=== PATIENT | male | born 1965 | race Caucasian/White ===

== ENCOUNTER 2018-05-18 20:34 | Inpatient (IN) | payer MEDICARE ==
[~2018-05-18] VITALS: Ht 177.8 cm; Wt 71.9 kg
[2018-05-18 21:07] LABS: BASOPHILS # (AUTO) 0.03 x10^3/uL (0-0.1); BASOPHILS % (AUTO) 1 % (0-1); EOSINOPHILS # (AUTO) 0.04 x10^3/uL (0-0.4); EOSINOPHILS % (AUTO) 1 % (1-7); LYMPHOCYTES # (AUTO) 1.36 x10^3/uL (1-3.4); LYMPHOCYTES % (AUTO) 34 % (22-44); MD NO; MEAN CORPUSCULAR HEMOGLOBIN 28.9 pg (27.5-34.5); MEAN CORPUSCULAR HGB CONC 33.3 g/dL (33.2-36.2); MEAN CORPUSCULAR VOLUME 86.7 fL (81-97); MEAN PLATELET VOLUME 8.2 fL (7.4-10.4); MONOCYTES # (AUTO) 0.47 x10^3/uL (0.2-0.8); MONOCYTES % (AUTO) 12 % (2-9); NEUTROPHILS # (AUTO) 2.17 x10^3/uL (1.8-6.8); NEUTROPHILS % (AUTO) 53 % (42-75); PLATELET COUNT 272 x10^3/uL (130-400); RED BLOOD COUNT 4.38 x10^6/uL (4.38-5.82); RED CELL DISTRIBUTION WIDTH 16.8 % (9.4-14.8)
--- NOTE | 2018-05-18 21:15 | NUR ---
FIRST CONTACT WITH PT. PT C/O UPPER QUADRANT PAIN RADIATING TO THE BACK, +N/V/D SINCE YESTERDAY. PT STATES "I HAVE CHRONIC PANCREATITIS AND I'M HAVING A FLARE UP". BP/SPO2 MONITORS IN PLACE. CALL LIGHT WITHIN REACH. PT'S AOX4. RESPS EVEN AND UNLABORED. AWAITING EDMD ASSESSMENT AT THIS TIME.
[2018-05-18 21:20] LABS: ALANINE AMINOTRANSFERASE 27 U/L (12-78); ALBUMIN 3.3 g/dL (3.4-5.0); ANION GAP 8 mmol/L (5-15); CALCIUM 8.3 mg/dL (8.5-10.1); CHLORIDE 104 mmol/L (98-107); CREATININE 1.04 mg/dL (0.7-1.3)
[2018-05-18 21:22] LABS: ALKALINE PHOSPHATASE 169 U/L (45-117); BILIRUBIN,TOTAL 0.7 mg/dL (0.2-1.0); TOTAL PROTEIN 7.6 g/dL (6.4-8.2)
[2018-05-18] MEDS ORDERED: ONDANSETRON 2MG/ML, 2ML IVPush ONE (22:00)
[2018-05-18] MEDS ORDERED: SODIUM CHLORIDE FLUSH 10ML SYR IVF ONE (22:00)
[2018-05-18] MEDS ORDERED: SODIUM CHLORIDE 0.9% 1,000ML IVBOLUS ONE ×2 (22:00→23:30)
--- NOTE | 2018-05-18 22:00 | NUR ---
PT AMB TO BR AND BACK TO ROOM WITH STEADY GAIT. UA SENT.
[2018-05-18] MEDS ORDERED: HYDROmorphone 1 MG/ML, 1ML AMP ONE ×2 (22:02→23:38)
[2018-05-18] MEDS ORDERED: ONDANSETRON 2MG/ML, 2ML ONE (22:05)
[2018-05-18 22:12] LABS: MICROSCOPIC AUTO
[2018-05-18] MEDS: HYDROmorphone 2 MG/ML, 1ML IVPush PRN ×2 (22:13→22:35)
[2018-05-18 22:14] LABS: CULTURE INDICATED? YES
--- NOTE | 2018-05-18 22:19 | NUR ---
PT MEDICATED PER EMAR. PT TOLERATED WELL. PT'S AOX4. RESPS EVEN AND UNLABORED.
--- NOTE | 2018-05-18 22:40 | NUR ---
PT C/O PAIN AFTER 1 DOSE OF DILAUDID. PT MEDICATED 2ND DOSE OF DILAUDID AT THIS TIME PER EMAR. PT'S AOX4. RESPS EVEN AND UNLABORED.
[2018-05-18] MEDS ORDERED: HYDROmorphone 1 MG/ML, 1ML AMP IV ONE (23:30)
--- NOTE | 2018-05-18 23:30 | NUR ---
PT C/O ABD/BACK PAIN RATE 09/30 STILL. EDMD NOTIFIED.
--- NOTE | 2018-05-18 23:47 | NUR ---
PT MEDICATED PER EMAR. PT TOLERATED WELL. PT'S AOX4. RESPS EVEN AND UNLABORED.
[2018-05-19] VITALS (8 sets, daily range): BP systolic 135–190; BP diastolic 89–128
--- NOTE | 2018-05-19 00:05 | NUR ---
PT C/O ABD/BACK PAIN RATE 8/10 STILL AFTER 1MG DILAUDID GIVEN. EDMD NOTIFIED.
[2018-05-19] MEDS ORDERED: HYDROmorphone 1 MG/ML, 1ML AMP IV ONE (01:30)
[2018-05-19] MEDS ORDERED: HYDROmorphone 1 MG/ML, 1ML AMP ONE (01:36)
--- NOTE | 2018-05-19 01:50 | NUR ---
PT MEDICATED PER EMAR FOR PAIN. PT TOLERATED WELL. PT'S AOX4. RESPS EVEN AND UNLABORED.
--- NOTE | 2018-05-19 01:51 | NUR ---
REPORT GIVEN TO ALEXANDRIA VERNON. ALL QUESTIONS ANSWERED.
[2018-05-19] MEDS ORDERED: ONDANSETRON 2MG/ML, 2ML IVPush PRN (03:00)
[2018-05-19] MEDS ORDERED: ENALAPRILAT 1.25 MG/ML, 2ML IVPush PRN ×2 (03:00→22:00)
[2018-05-19] MEDS: HYDROmorphone 2 MG/ML, 1ML IVPush PRN ×5 (03:49→19:45)
[2018-05-19] MEDS: CEFTRIAXONE PMX 1GM/50ML 50 ML IV SCH (04:19)
[2018-05-19] MEDS: LACTATED RINGERS 1,000 ML IV SCH ×2 (04:19→12:14)
[2018-05-19] MEDS: ENOXAPARIN 40 MG/0.4 ML SQ SCH (04:20)
[2018-05-19] MEDS ORDERED: HUM100VI6 SUBMUC ×2 (04:45→04:46)
[2018-05-19] MEDS ORDERED: HYDR1LIQ6 PO (04:47)
[2018-05-19 05:32] LABS: ALANINE AMINOTRANSFERASE 23 U/L (12-78); ANION GAP 5 mmol/L (5-15); CALCIUM 7.6 mg/dL (8.5-10.1); CHLORIDE 109 mmol/L (98-107); CREATININE 0.93 mg/dL (0.7-1.3)
[2018-05-19 05:34] LABS: ALKALINE PHOSPHATASE 142 U/L (45-117); BILIRUBIN,TOTAL 0.4 mg/dL (0.2-1.0); TOTAL PROTEIN 6.7 g/dL (6.4-8.2)
[2018-05-19 05:38] LABS: BASOPHILS # (AUTO) 0.04 x10^3/uL (0-0.1); BASOPHILS % (AUTO) 1 % (0-1); EOSINOPHILS # (AUTO) 0.05 x10^3/uL (0-0.4); EOSINOPHILS % (AUTO) 1 % (1-7); LYMPHOCYTES # (AUTO) 1.34 x10^3/uL (1-3.4); LYMPHOCYTES % (AUTO) 30 % (22-44); MD NO; MEAN CORPUSCULAR HEMOGLOBIN 29.2 pg (27.5-34.5); MEAN CORPUSCULAR HGB CONC 33.6 g/dL (33.2-36.2); MEAN CORPUSCULAR VOLUME 86.8 fL (81-97); MEAN PLATELET VOLUME 8.4 fL (7.4-10.4); MONOCYTES # (AUTO) 0.56 x10^3/uL (0.2-0.8); MONOCYTES % (AUTO) 13 % (2-9); NEUTROPHILS # (AUTO) 2.49 x10^3/uL (1.8-6.8); NEUTROPHILS % (AUTO) 56 % (42-75); PLATELET COUNT 215 x10^3/uL (130-400); RED BLOOD COUNT 3.81 x10^6/uL (4.38-5.82); RED CELL DISTRIBUTION WIDTH 17.5 % (9.4-14.8)
[2018-05-19 05:59] LABS: HEMOGLOBIN A1C 8.8 % (4.2-6.3)
[2018-05-19] MEDS: INSULIN LISPRO 100 UNITS/ML, PEN SQ-INSULIN SCH ×4 (07:00→19:48)
[2018-05-19] MEDS: HYDROmorphone 2MG TABLET PO SCH ×2 (17:01→21:20)
[2018-05-19] MEDS: ENALAPRILAT 1.25 MG/ML, 2ML IVPush PRN ×2 (18:33→19:23)
[2018-05-19] MEDS ORDERED: INSULIN HUMULIN 70/30, 3ML PEN SQ-INSULIN SCH (21:00)
[2018-05-19] MEDS ORDERED: hydrALAzine 20 MG/ML, 1ML IV ONE (22:00)
[2018-05-20 00:52] VITALS: BP 128/80
[2018-05-20] MEDS: CEFTRIAXONE PMX 1GM/50ML 50 ML IV SCH (03:05)
[2018-05-20] MEDS: ENOXAPARIN 40 MG/0.4 ML SQ SCH (03:05)
[2018-05-20 05:32] LABS: HCT (SEDRATE) 35.9 % (39.2-51.8); MEAN CORPUSCULAR HGB CONC 33.3 g/dL (33.2-36.2); MEAN CORPUSCULAR VOLUME 86.9 fL (81-97); MEAN PLATELET VOLUME 8.7 fL (7.4-10.4); PLATELET COUNT 189 x10^3/uL (130-400); RED BLOOD COUNT 4.14 x10^6/uL (4.38-5.82); RED CELL DISTRIBUTION WIDTH 17.4 % (9.4-14.8)
[2018-05-20 05:35] LABS: ANION GAP 6 mmol/L (5-15); CALCIUM 9.1 mg/dL (8.5-10.1); CHLORIDE 108 mmol/L (98-107); CREATININE 0.82 mg/dL (0.7-1.3); HIGH-SENSITIVITY CRP 0.25 mg/dL (0.02-0.30)
[2018-05-20 07:17] LABS: BASOPHILS # (AUTO) 0.04 x10^3/uL (0-0.1); BASOPHILS % (AUTO) 1 % (0-1); EOSINOPHILS # (AUTO) 0.11 x10^3/uL (0-0.4); EOSINOPHILS % (AUTO) 3 % (1-7); LYMPHOCYTES % (AUTO) 29 % (22-44); MD MORPH REVIEW ONLY; MONOCYTES # (AUTO) 0.38 x10^3/uL (0.2-0.8); MONOCYTES % (AUTO) 9 % (2-9); NEUTROPHILS % (AUTO) 59 % (42-75)
[2018-05-20 07:19] LABS: <PLATELET ESTIMATE> ADEQUATE; <PLT MORPHOLOGY> NORMAL PLT MORPH; ANISOCYTOSIS 1+
[2018-05-20] MEDS ORDERED: INSULIN HUMULIN 70/30, 3ML PEN SQ-INSULIN SCH (07:30)
[2018-05-20] MEDS: INSULIN LISPRO 100 UNITS/ML, PEN SQ-INSULIN SCH (07:53)
[2018-05-20 08:07] VITALS: BP 162/113
[2018-05-20] MEDS: HYDROmorphone 2MG TABLET PO SCH (08:28)
== END 2018-05-20 08:45 | disposition left against medical advice (07) | DRG 440 ==
LOC: ED 23:59 → EDIP 05-19 01:16 → 3NE 05-19 01:59
PROVIDERS: ADMIT Family Medicine; ATTEND Family Medicine
DX: K85.90 Acute pancreatitis without necrosis or infection, unspecified (principal); E11.9 Type 2 diabetes mellitus without complications; K86.1 Other chronic pancreatitis; R35.0 Frequency of micturition; Z53.21 Procedure and treatment not carried out due to patient leaving prior to being seen by health care provider; I10 Essential (primary) hypertension; Z79.01 Long term (current) use of anticoagulants; Z79.4 Long term (current) use of insulin; Z86.711 Personal history of pulmonary embolism; Z86.718 Personal history of other venous thrombosis and embolism; Z90.49 Acquired absence of other specified parts of digestive tract; Z88.8 Allergy status to other drugs, medicaments and biological substances
CPT/HCPCS: 36415; 76700; 80048; 80053; 81001; 82962; 83036; 83690; 85025; 85651; 86141; 87086; 96361; 96374; 96375; 96376; G0378; J0696; J1170; J1650; J2405; J0360; J1815; J7030; J7120

== ENCOUNTER 2018-05-21 00:14 | Emergency (ER) | payer MEDICARE ==
[~2018-05-21] VITALS: Ht 177.8 cm; Wt 71.4 kg
[~2018-05-21 00:14] MED LIST: HUM100VI6 SUBMUC; HYDR1LIQ6 PO
--- NOTE | 2018-05-21 00:27 | NUR ---
PT SIGNED OUT AMA 04/23/18 AFTER STATING "FUCK THIS PLACE".
[2018-05-21] MEDS ORDERED: ONDANSETRON ODT 4 MG ONE (00:55)
[2018-05-21] MEDS ORDERED: OXYcodone/APAP 5/325MG TABLET ONE (00:56)
--- NOTE | 2018-05-21 00:59 | NUR ---
PT MEDICATED PER EMAR. 5 RIGHTS ADDRESSED
[2018-05-21] MEDS ORDERED: OXYcodone/APAP 5/325MG TABLET PO ONE (01:00)
[2018-05-21] MEDS ORDERED: ONDANSETRON ODT 4 MG PO ONE (01:00)
[2018-05-21 01:18] LABS: BASOPHILS # (AUTO) 0.04 x10^3/uL (0-0.1); BASOPHILS % (AUTO) 1 % (0-1); EOSINOPHILS # (AUTO) 0.02 x10^3/uL (0-0.4); EOSINOPHILS % (AUTO) 0 % (1-7); LYMPHOCYTES # (AUTO) 1.42 x10^3/uL (1-3.4); LYMPHOCYTES % (AUTO) 25 % (22-44); MD NO; MEAN CORPUSCULAR HEMOGLOBIN 28.9 pg (27.5-34.5); MEAN CORPUSCULAR HGB CONC 33.3 g/dL (33.2-36.2); MEAN CORPUSCULAR VOLUME 86.8 fL (81-97); MEAN PLATELET VOLUME 8.2 fL (7.4-10.4); MONOCYTES # (AUTO) 0.54 x10^3/uL (0.2-0.8); MONOCYTES % (AUTO) 10 % (2-9); NEUTROPHILS # (AUTO) 3.64 x10^3/uL (1.8-6.8); NEUTROPHILS % (AUTO) 64 % (42-75); PLATELET COUNT 242 x10^3/uL (130-400); RED BLOOD COUNT 4.49 x10^6/uL (4.38-5.82); RED CELL DISTRIBUTION WIDTH 18.5 % (9.4-14.8)
[2018-05-21 01:31] LABS: ALANINE AMINOTRANSFERASE 30 U/L (12-78); ALBUMIN 3.6 g/dL (3.4-5.0); ANION GAP 7 mmol/L (5-15); CALCIUM 8.6 mg/dL (8.5-10.1); CHLORIDE 108 mmol/L (98-107); CREATININE 0.97 mg/dL (0.7-1.3)
[2018-05-21 01:35] LABS: ALKALINE PHOSPHATASE 161 U/L (45-117); BILIRUBIN,TOTAL 0.6 mg/dL (0.2-1.0); TOTAL PROTEIN 7.9 g/dL (6.4-8.2); TROPONIN I < 0.015 ng/mL (0.000-0.045)
[2018-05-21 02:10] VITALS: BP 147/97
--- NOTE | 2018-05-21 02:17 | NUR ---
Patient/Caregiver given discharge instructions and they have confirmed that they understand the instructions. Patient ambulatory with steady gait.
== END 2018-05-21 02:19 | disposition home or self-care (01) ==
LOC: ED 00:37
DX: F11.20 Opioid dependence, uncomplicated (principal); I10 Essential (primary) hypertension; E11.9 Type 2 diabetes mellitus without complications; R10.13 Epigastric pain; R19.7 Diarrhea, unspecified; R11.2 Nausea with vomiting, unspecified; Z86.718 Personal history of other venous thrombosis and embolism
CPT/HCPCS: 36415; 80053; 83690; 84484; 85025; 93005; 99284; Q0162

== ENCOUNTER 2018-06-23 07:06 | Inpatient (IN) | payer MEDICARE ==
[~2018-06-23] VITALS: Ht 177.8 cm; Wt 78.8 kg
[2018-06-23] MEDS ORDERED: IBUPROFEN 200 MG TABLET PO ONE (08:00)
[2018-06-23] MEDS ORDERED: METHOCARBAMOL 750 MG TABLET PO ONE (08:00)
[2018-06-23] MEDS ORDERED: METHOCARBAMOL 750 MG TABLET ONE (08:08)
[2018-06-23] MEDS ORDERED: IBUPROFEN 600 MG TABLET ONE (08:09)
[2018-06-23 08:25] LABS: MEAN CORPUSCULAR HEMOGLOBIN 27.2 pg (27.5-34.5); MEAN CORPUSCULAR HGB CONC 32.3 g/dL (33.2-36.2); MEAN CORPUSCULAR VOLUME 84.2 fL (81-97); MEAN PLATELET VOLUME 8.4 fL (7.4-10.4); PLATELET COUNT 254 x10^3/uL (130-400); RED BLOOD COUNT 4.68 x10^6/uL (4.38-5.82); RED CELL DISTRIBUTION WIDTH 15.7 % (9.4-14.8)
[2018-06-23 09:15] LABS: MD YES
[2018-06-23 09:18] LABS: <PLATELET ESTIMATE> ADEQUATE; BAND#(MANUAL) 0.82 x10^3/uL; BANDS%(MANUAL) 5 % (0-7); CHLORIDE 96 mmol/L (98-107); LYMPH#(MANUAL) 0.49 x10^3/uL (1-3.4); LYMPHS% (MANUAL) 3 % (22-44); MONOS#(MANUAL) 1.14 x10^3/uL (0.3-2.7); MONOS% (MANUAL) 7 % (2-9); MYELOCYTES# (MANUAL) 0.16 x10^3/uL (0-0); MYELOCYTES% (MANUAL) 1 % (0-0); SEG#(MANUAL) 13.69 x10^3/uL (1.8-6.8); SEGS% (MANUAL) 84 % (42-75)
[2018-06-23 09:19] LABS: <PLT MORPHOLOGY> NORMAL PLT MORPH; TOXIC GRAN 1+
[2018-06-23 09:20] LABS: ANISOCYTOSIS 1+
[2018-06-23 09:22] LABS: ALANINE AMINOTRANSFERASE 18 U/L (12-78); ALBUMIN 2.4 g/dL (3.4-5.0); CREATININE 1.35 mg/dL (0.7-1.3)
[2018-06-23 09:31] LABS: MICROSCOPIC INDICATED
[2018-06-23 09:32] LABS: ALKALINE PHOSPHATASE 264 U/L (45-117); BILIRUBIN,TOTAL 0.7 mg/dL (0.2-1.0); TOTAL PROTEIN 7.2 g/dL (6.4-8.2)
[2018-06-23 09:36] LABS: CULTURE INDICATED? YES
[2018-06-23 10:08] LABS: ANION GAP 9 mmol/L (5-15); CALCIUM 8.6 mg/dL (8.5-10.1)
[2018-06-23] MEDS ORDERED: OMNIPAQUE 350 MG/ML, 100ML BOTTLE ONE (10:13)
[2018-06-23] MEDS ORDERED: CEFTRIAXONE PMX 1GM/50ML 50 ML IV ONE (10:30)
[2018-06-23] MEDS ORDERED: CEFTRIAXONE PMX 1GM/50ML 50 ML ONE (10:39)
--- NOTE | 2018-06-23 10:53 | NUR ---
Report to JANEEN Morrison; care transferred at this time.
[2018-06-23] MEDS ORDERED: SODIUM CHLORIDE 0.9% 1,000 ML IV SCH (12:59)
[2018-06-23] MEDS ORDERED: ONDANSETRON ODT 4 MG PO PRN (13:00)
[2018-06-23] MEDS ORDERED: GABAPENTIN 300 MG CAPSULE PO PRN (13:00)
[2018-06-23] MEDS ORDERED: HYDROmorphone 2 MG/ML, 1ML IVPush PRN (13:00)
[2018-06-23] MEDS ORDERED: METHOCARBAMOL 500 MG TABLET PO PRN (13:00)
[2018-06-23] MEDS: HYDROmorphone 2MG TABLET PO PRN ×2 (13:50→20:48)
[2018-06-23] MEDS: TAMSULOSIN 0.4 MG CAP.ER.24H PO SCH (13:50)
[2018-06-23] MEDS: HEPARIN 5,000 UNITS/ML, 1ML SQ SCH ×2 (13:50→20:48)
[2018-06-23 14:00] VITALS: BP 126/90
[2018-06-23] MEDS: ONDANSETRON 2MG/ML, 2ML IVPush PRN ×2 (14:14→20:48)
[2018-06-23] MEDS: CEFTRIAXONE PMX 2GM/50ML 50 ML IV SCH (14:14)
[2018-06-23 14:25] LABS: HEMOGLOBIN A1C 8.2 % (4.2-6.3)
[2018-06-23] MEDS: INSULIN LISPRO 100 UNITS/ML, PEN SQ-INSULIN SCH ×2 (17:51→20:58)
[2018-06-23 20:05] VITALS: BP 136/94
[2018-06-23] MEDS: ACETAMINOPHEN 325 MG TABLET PO PRN (20:20)
[2018-06-23] MEDS ORDERED: SODIUM CHLORIDE 0.9%, 500ML IVBOLUS ONE (22:00)
[2018-06-23 22:31] VITALS: BP 125/81
[2018-06-24 00:15] VITALS: BP 109/73
[2018-06-24] MEDS: HEPARIN 5,000 UNITS/ML, 1ML SQ SCH ×3 (04:53→20:07)
[2018-06-24 06:30] LABS: ALBUMIN 2.1 g/dL (3.4-5.0); ANION GAP 12 mmol/L (5-15); CALCIUM 8.1 mg/dL (8.5-10.1); CHLORIDE 98 mmol/L (98-107)
[2018-06-24 06:36] LABS: ALANINE AMINOTRANSFERASE 19 U/L (12-78); ALKALINE PHOSPHATASE 218 U/L (45-117); BILIRUBIN,TOTAL 0.4 mg/dL (0.2-1.0); CREATININE 1.47 mg/dL (0.7-1.3); TOTAL PROTEIN 6.2 g/dL (6.4-8.2)
[2018-06-24 07:04] VITALS: BP 115/78
[2018-06-24 07:30] LABS: MEAN CORPUSCULAR HEMOGLOBIN 26.6 pg (27.5-34.5); MEAN CORPUSCULAR HGB CONC 32.1 g/dL (33.2-36.2); MEAN CORPUSCULAR VOLUME 82.8 fL (81-97); MEAN PLATELET VOLUME 8.2 fL (7.4-10.4); PLATELET COUNT 253 x10^3/uL (130-400)
[2018-06-24 08:14] LABS: MD YES
[2018-06-24 08:19] LABS: <PLATELET ESTIMATE> ADEQUATE; <PLT MORPHOLOGY> NORMAL PLT MORPH; ANISOCYTOSIS 1+; BAND#(MANUAL) 1.21 x10^3/uL; BANDS%(MANUAL) 9 % (0-7); EOS#(MANUAL) 0.13 x10^3/uL (0.0-0.4); EOS% (MANUAL) 1 % (1-7); LYMPHS% (MANUAL) 6 % (22-44); MONOS#(MANUAL) 1.61 x10^3/uL (0.3-2.7); MONOS% (MANUAL) 12 % (2-9); SEG#(MANUAL) 9.65 x10^3/uL (1.8-6.8); SEGS% (MANUAL) 72 % (42-75); TOXIC GRAN 1+
[2018-06-24] MEDS: TAMSULOSIN 0.4 MG CAP.ER.24H PO SCH (08:20)
[2018-06-24] MEDS: ONDANSETRON 2MG/ML, 2ML IVPush PRN (08:20)
[2018-06-24] MEDS: INSULIN LISPRO 100 UNITS/ML, PEN SQ-INSULIN SCH ×4 (08:20→20:07)
[2018-06-24] MEDS ORDERED: HYDROmorphone 2 MG/ML, 1ML IVPush PRN (09:30)
[2018-06-24] MEDS: ACETAMINOPHEN 325 MG TABLET PO PRN (10:34)
[2018-06-24] MEDS: HYDROmorphone 2MG TABLET PO PRN ×3 (10:34→23:05)
[2018-06-24] MEDS: METRONIDAZOLE PMX 500MG/100ML 100 ML IV SCH ×3 (11:59→22:19)
[2018-06-24] MEDS: SODIUM CHLORIDE 0.9% 1,000 ML IV SCH ×2 (12:01→20:08)
[2018-06-24] MEDS ORDERED: SODIUM CHLORIDE 0.9% 1,000 ML IV SCH (12:59)
[2018-06-24] MEDS ORDERED: Creon PO (13:23)
[2018-06-24] MEDS ORDERED: Gabapentin (13:23)
[2018-06-24] MEDS ORDERED: INSU100I7 SQ-INSULIN (13:23)
[2018-06-24] MEDS ORDERED: HYDR2TAB29 PO (13:23)
[2018-06-24] MEDS: CEFTRIAXONE PMX 2GM/50ML 50 ML IV SCH (13:36)
[2018-06-24 13:56] VITALS: BP 120/79
[2018-06-24 18:44] VITALS: BP 137/86
[2018-06-24] MEDS: HYDROmorphone 2 MG/ML, 1ML IVPush PRN (20:08)
[2018-06-25 00:54] VITALS: BP 142/83
[2018-06-25] MEDS: HYDROmorphone 2 MG/ML, 1ML IVPush PRN ×4 (02:12→21:45)
[2018-06-25] MEDS: SODIUM CHLORIDE 0.9% 1,000 ML IV SCH ×4 (02:12→21:57)
[2018-06-25] MEDS: METRONIDAZOLE PMX 500MG/100ML 100 ML IV SCH ×4 (05:06→23:30)
[2018-06-25] MEDS: HEPARIN 5,000 UNITS/ML, 1ML SQ SCH ×3 (05:06→21:46)
[2018-06-25] MEDS: HYDROmorphone 2MG TABLET PO PRN ×4 (05:06→23:30)
[2018-06-25 06:04] LABS: CHLORIDE 103 mmol/L (98-107)
[2018-06-25 06:07] LABS: MEAN CORPUSCULAR HEMOGLOBIN 26.8 pg (27.5-34.5); MEAN CORPUSCULAR HGB CONC 32.2 g/dL (33.2-36.2); MEAN CORPUSCULAR VOLUME 83.2 fL (81-97); MEAN PLATELET VOLUME 8.1 fL (7.4-10.4); PLATELET COUNT 236 x10^3/uL (130-400); RED CELL DISTRIBUTION WIDTH 15.7 % (9.4-14.8)
[2018-06-25 06:11] LABS: ALANINE AMINOTRANSFERASE 23 U/L (12-78); ALBUMIN 1.9 g/dL (3.4-5.0); ALKALINE PHOSPHATASE 254 U/L (45-117); ANION GAP 8 mmol/L (5-15); BILIRUBIN,TOTAL 0.4 mg/dL (0.2-1.0); CREATININE 1.32 mg/dL (0.7-1.3)
[2018-06-25 06:52] LABS: MD YES
[2018-06-25 06:56] LABS: <PLATELET ESTIMATE> ADEQUATE; <PLT MORPHOLOGY> NORMAL PLT MORPH; ANISOCYTOSIS 1+; BAND#(MANUAL) 0.96 x10^3/uL; BANDS%(MANUAL) 10 % (0-7); LYMPH#(MANUAL) 1.54 x10^3/uL (1-3.4); LYMPHS% (MANUAL) 16 % (22-44); MONOS#(MANUAL) 1.34 x10^3/uL (0.3-2.7); MONOS% (MANUAL) 14 % (2-9); SEG#(MANUAL) 5.76 x10^3/uL (1.8-6.8); SEGS% (MANUAL) 60 % (42-75)
[2018-06-25 06:58] LABS: TOXIC GRAN 1+
[2018-06-25] MEDS: TAMSULOSIN 0.4 MG CAP.ER.24H PO SCH (07:22)
[2018-06-25] MEDS: INSULIN LISPRO 100 UNITS/ML, PEN SQ-INSULIN SCH ×4 (07:23→21:56)
[2018-06-25 07:55] VITALS: BP 122/78
[2018-06-25 13:39] VITALS: BP 147/89
[2018-06-25] MEDS: CEFTRIAXONE PMX 2GM/50ML 50 ML IV SCH (13:49)
[2018-06-25 19:10] VITALS: BP 129/77
[2018-06-26 02:29] VITALS: BP 149/85
[2018-06-26] MEDS: ONDANSETRON 2MG/ML, 2ML IVPush PRN (04:20)
[2018-06-26] MEDS: HYDROmorphone 2 MG/ML, 1ML IVPush PRN (04:20)
[2018-06-26] MEDS: SODIUM CHLORIDE 0.9% 1,000 ML IV SCH (04:30)
[2018-06-26] MEDS: METRONIDAZOLE PMX 500MG/100ML 100 ML IV SCH ×2 (04:46→11:32)
[2018-06-26] MEDS: HEPARIN 5,000 UNITS/ML, 1ML SQ SCH (04:46)
[2018-06-26 05:31] LABS: BASOPHILS # (AUTO) 0.05 x10^3/uL (0-0.1); BASOPHILS % (AUTO) 0 % (0-1); EOSINOPHILS # (AUTO) 0.03 x10^3/uL (0-0.4); EOSINOPHILS % (AUTO) 0 % (1-7); LYMPHOCYTES # (AUTO) 0.38 x10^3/uL (1-3.4); LYMPHOCYTES % (AUTO) 3 % (22-44); MD NO; MEAN CORPUSCULAR HEMOGLOBIN 27.2 pg (27.5-34.5); MEAN CORPUSCULAR HGB CONC 32.8 g/dL (33.2-36.2); MEAN CORPUSCULAR VOLUME 82.9 fL (81-97); MEAN PLATELET VOLUME 8.9 fL (7.4-10.4); MONOCYTES # (AUTO) 0.68 x10^3/uL (0.2-0.8); MONOCYTES % (AUTO) 6 % (2-9); NEUTROPHILS # (AUTO) 10.28 x10^3/uL (1.8-6.8); NEUTROPHILS % (AUTO) 90 % (42-75); PLATELET COUNT 258 x10^3/uL (130-400); RED CELL DISTRIBUTION WIDTH 16.1 % (9.4-14.8)
[2018-06-26 05:36] LABS: ANION GAP 9 mmol/L (5-15); CHLORIDE 104 mmol/L (98-107)
[2018-06-26 05:39] LABS: ALANINE AMINOTRANSFERASE 21 U/L (12-78); ALKALINE PHOSPHATASE 281 U/L (45-117); BILIRUBIN,TOTAL 0.3 mg/dL (0.2-1.0); CREATININE 1.12 mg/dL (0.7-1.3); TOTAL PROTEIN 6.3 g/dL (6.4-8.2)
[2018-06-26] MEDS: HYDROmorphone 2MG TABLET PO PRN ×2 (06:03→11:32)
[2018-06-26] MEDS: INSULIN LISPRO 100 UNITS/ML, PEN SQ-INSULIN SCH ×2 (07:00→11:32)
[2018-06-26 09:32] VITALS: BP 129/84
[2018-06-26] MEDS: TAMSULOSIN 0.4 MG CAP.ER.24H PO SCH (11:32)
[2018-06-26] MEDS ORDERED: ONDA4TAB13 PO (11:41)
[2018-06-26] MEDS ORDERED: POLY17PO5 PO (11:41)
[2018-06-26] MEDS ORDERED: CEFD300C37 PO (11:41)
[2018-06-26 12:49] VITALS: BP 143/87
== END 2018-06-26 13:58 | disposition home or self-care (01) | DRG 871 ==
LOC: ED 10:11 → EDIP 10:59 → 3NE 11:50 → DCLOUNGE 06-26 13:47
PROVIDERS: ADMIT Internal Medicine; ATTEND Internal Medicine
DX: A41.9 Sepsis, unspecified organism (principal); N17.0 Acute kidney failure with tubular necrosis; E87.1 Hypo-osmolality and hyponatremia; E87.2 Acidosis; F11.20 Opioid dependence, uncomplicated; J98.11 Atelectasis; K86.1 Other chronic pancreatitis; N10 Acute pyelonephritis; M54.5 Low back pain; D64.9 Anemia, unspecified; E11.9 Type 2 diabetes mellitus without complications; G89.29 Other chronic pain; E86.0 Dehydration; K52.9 Noninfective gastroenteritis and colitis, unspecified; K76.0 Fatty (change of) liver, not elsewhere classified; N30.91 Cystitis, unspecified with hematuria; Z86.711 Personal history of pulmonary embolism; Z86.718 Personal history of other venous thrombosis and embolism; Z90.49 Acquired absence of other specified parts of digestive tract; Z79.899 Other long term (current) drug therapy
CPT/HCPCS: 36415; 74177; 80053; 81001; 82436; 82570; 82962; 83036; 83605; 83690; 83735; 84100; 84133; 84300; 85025; 87040; 87077; 87086; 87186; 93005; G0378; J0696; J1170; J1644; J2405; Q9967; J7030; J7040

== ENCOUNTER 2018-09-16 10:12 | Emergency (ER) | payer MEDICARE ==
[~2018-09-16] VITALS: Ht 177.8 cm; Wt 67.0 kg
[2018-09-16 14:11] VITALS: BP 154/76
== END 2018-09-16 14:15 | disposition home or self-care (01) ==
LOC: ED 12:11
DX: N30.01 Acute cystitis with hematuria (principal); E11.9 Type 2 diabetes mellitus without complications; Z86.718 Personal history of other venous thrombosis and embolism; Z90.49 Acquired absence of other specified parts of digestive tract; I10 Essential (primary) hypertension
CPT/HCPCS: 36415; 74176; 80048; 81001; 82040; 85025; 87077; 87086; 96365; 96375; 99284; J0696; J2270; J2405; 87186